=== PATIENT | male | born 1980 | race Caucasian/White ===

== ENCOUNTER 2017-11-11 17:13 | Emergency (ER) | payer OTHER ==
[~2017-11-11] VITALS: Ht 193 cm; Wt 95.2 kg
[2017-11-11 17:35] VITALS: Ht 193 cm; Wt 95.2 kg
[2017-11-11 18:49] VITALS: BP 136/74
== END 2017-11-11 19:24 | disposition home or self-care (01) ==
LOC: ED 17:13
DX: S51.811A Laceration without foreign body of right forearm, initial encounter (principal); X58.XXXA Exposure to other specified factors, initial encounter; Y93.89 Activity, other specified; Y92.89 Other specified places as the place of occurrence of the external cause; Y99.8 Other external cause status
CPT/HCPCS: J0690; J2001; J7030; Q0092